=== PATIENT | male | born 1960 | race Hispanic/Latino ===

== ENCOUNTER → 2019-07-30 07:22 | Outpatient (CLI) | payer OTHER, SELFPAY ==
--- NOTE | ~2019-07-30 | US_ITS ---
US right upper quadrant INDICATION: Elevated liver enzymes PROCEDURE: Realtime right upper abdominal ultrasound. COMPARISON: No prior studies for comparison. FINDINGS: The pancreas is obscured by bowel gas. Liver echotexture is normal without focal mass or i ntrahepatic biliary dilatation. There is normal directional flow in the portal vein. The gallbladder is normal without stones, gallbladder wall thickening or pericholecystic fluid. Comm on bile duct measures 3 mm. No sonographic Garcia's sign. IMPRESSION: 1: Normal limited abdominal ultrasound. Reviewed, dictated and finalized at location A. OR GREETING CARD
== END ==
PROVIDERS: Visit Provider Internal Medicine
DX: R74.8 Abnormal levels of other serum enzymes (principal)
CPT/HCPCS: 76705

== ENCOUNTER → 2020-08-24 16:42 | Outpatient (CLI) | payer OTHER, SELFPAY ==
--- NOTE | ~2020-08-24 | XR_ITS ---
EXAMINATION: XR hip LT 2V w AP pelvis DATE: 08/24/2020 17:03 INDICATION: Left hip pain TECHNIQUE: Anteroposterior view of the pelvis and anteroposterior and frog-leg lateral views of the l eft hip were obtained. COMPARISON: None. FINDINGS: Alignment is normal. No fracture or suspected avascular necrosis. Mild bilateral hip osteoarthritis w ith mild nonuniform joint space narrowing and acetabular marginal osteophytes, small on the left and moderate on the right. Minimal bilateral sacroiliac osteoarthritis. Soft tissues are unremarkable. IMPRESSION: 1. Mild bilateral hip osteoarthritis. No acute osseous abnormality. Reviewed, dictated and finalized at location B.
--- NOTE | ~2020-08-24 | XR_ITS ---
EXAMINATION: XR lumbar spine 2-3V DATE: 08/24/2020 17:02 INDICATION: Left hip pain TECHNIQUE: Anteroposterior and lateral views of the lumbar spine, and cone-down lateral view of the l umbosacral junction were obtained. COMPARISON: None. FINDINGS: Alignment is normal. Vertebral body and disc heights are normal. Lumbar facet osteoarthritis, mild in the mid to upper lumbar spine and moderate in the lower lumbar spine. Sacrum and bilateral sacralize d joints are unremarkable. IMPRESSION: 1. Mild to moderate lumbar facet osteoarthritis. Reviewed, dictated and finalized at location B.
== END ==
PROVIDERS: PCP Internal Medicine; Visit Provider Internal Medicine
DX: M51.36 Other intervertebral disc degeneration, lumbar region (principal); M16.0 Bilateral primary osteoarthritis of hip
CPT/HCPCS: 72100; 73502

== ENCOUNTER 2024-06-16 01:23 | Day surgery (SDC) | payer BC, SELFPAY ==
[2024-05-25 14:36] VITALS: BMI 34.4
[2024-06-16 06:55] VITALS: BP 142/84; PULSE 82; RESP 16; TEMP 36.2; O2SAT 98; BMI 30.9
[2024-06-16] MEDS: LACTATED RINGERS 1,000 ML 150 ML IV CONT (07:18)
[2024-06-16 07:20] LABS: Glucose Point of Care 133 mg/dl (65-105)
--- NOTE | 2024-06-16 07:26 | WPDANESEPPF ---
Anes - Initial Pre Proc Eval Procedure: Operation Date: 06/16/24 08:00 Proposed Procedures p Screening Colonoscopy - Luís Navarro MD Date/Time: 06/16/24 07:26 Surgeon: Luís Navarro MD Pre Op Diagnosis: neoplasm screening Patient Data Age: 64 Gender: M Height: 1.7 m Weight: 89.5 kg Last Vital Signs Temp 36.2 C L 06/16/24 06:55 Pulse 82 06/16/24 06:55 Resp 16 06/16/24 06:55 BP 142/84 H 06/16/24 06:55 Pulse Ox 98 06/16/24 06:55 O2 Del Method Room Air 06/16/24 06:55 Allergies Allergy/AdvReac Type Severity Reaction Status Date / Time meloxicam AdvReac Rash Verified 06/16/24 07:03 Home Medications ?Medication ?Instructions ?Recorded ?Confirmed ?Type amlodipine 10 mg tablet 10 mg PO DAILY 05/25/24 06/16/24 History atorvastatin 40 mg tablet 40 mg PO DAILY 05/25/24 06/16/24 History metformin 500 mg tablet 1,000 mg PO BID 05/25/24 06/16/24 History Laboratory Tests 06/16/24 07:16 POC Capillary Glucose 133 H mg/dl (65-105) Patient hx anesthesia problems: none Family hx anesthesia problems: none Results Review: All pre-operative results and documents have been reviewed as part of the pre-operative evaluation. [facility] Past Medical History Medical History (Updated 06/16/24 @ 07:27 by Zane Mejia MD) HTN (hypertension) Diabetes Obesity Social History Social History Smoking status: Never smoker Substance use type: does not use Living arrangements: with family Spiritual care concerns: No Anes - Eval Final PreProcedure Day of Procedure 06/16/24 07:26 Patient weight: obese Heart: regular rate and rhythm Lungs: clear to auscultation Airway: Mallampati scale class II Neurological: alert and oriented Last oral intake: >/= 8 hours ASA classification: III Emergent: no Anesthetic plan: proceed Anesthesia type and monitoring: general GIVS and standard monitoring Results Review: All pre-operative results and documents have been reviewed as part of the pre-operative evaluation. Informed Consent: The patient's anesthetic plan and its attendant risks and benefits were discussed with the patient/family/POA. Questions were solicited and answers provided to the satisfaction of the patient/family/POA.
--- NOTE | 2024-06-16 07:56 | PM.IMHP ---
H&P: HPI History of Present Illness Date/Time: 06/16/24 07:56 Chief Complaint: History of colon polyps Narrative: The patient has a history of colonic polyps, the last colonoscopy was 5 years ago. there is no family history of colorectal cancer Review of Systems Review of Systems: All systems reviewed & are unremarkable except as noted in HPI and below PMFSH Past Medical History Medical History (Updated 06/16/24 @ 07:57 by Luís Navarro MD) HTN (hypertension) Diabetes Obesity Social History Social History Smoking status: Never smoker Substance use type: does not use Living arrangements: with family Spiritual care concerns: No Meds Home Medications and Allergies Home Medications ?Medication ?Instructions ?Recorded ?Confirmed ?Type amlodipine 10 mg tablet 10 mg PO DAILY 05/25/24 06/16/24 History atorvastatin 40 mg tablet 40 mg PO DAILY 05/25/24 06/16/24 History metformin 500 mg tablet 1,000 mg PO BID 05/25/24 06/16/24 History Allergies Allergy/AdvReac Type Severity Reaction Status Date / Time meloxicam AdvReac Rash Verified 06/16/24 07:03 Vital Signs Vital Signs - 24 hr 06/16/24 06:55 Temperature 97.2 F L Pulse Rate 82 Respiratory Rate 16 Blood Pressure 142/84 H Pulse Oximetry 98 Oxygen Delivery Room Air Exam Const: General: cooperative and healthy appearing Resp: Effort & Inspection: normal respiratory effort and able to speak in complete sentences Auscultation: clear to auscultation bilaterally Cardio: Rate: regular rate Rhythm: regular rhythm GI: Inspection: normal to inspection GI Palp: No No hepatosplenomegaly present Auscultation: normal bowel sounds Rectal Exam: deferred Skin: General skin exam: normal color Psych: Appearance: grossly normal Mental Status: mental status grossly normal Assessment and Plan Assessment and plan (1) History of colonic polyps: Code(s): Z86.0100 - Personal history of colon polyps, unspecified Status: Acute Assessment and Plan: The patient is deemed a good candidate for the procedure. Consent signed. Will proceed.
[2024-06-16 08:15] VITALS: BP 101/68; PULSE 62; RESP 16; O2SAT 97
[2024-06-16 08:25] VITALS: BP 110/71; PULSE 58; RESP 14; O2SAT 100
[2024-06-16 08:35] VITALS: BP 127/86; PULSE 65; RESP 15; O2SAT 100
== END 2024-06-16 08:44 | disposition home or self-care (01) ==
PROVIDERS: PCP Internal Medicine; Visit Provider Internal Medicine Gastroenterology
PROC: 0DJD8ZZ Inspection of Lower Intestinal Tract, Via Natural or Artificial Opening Endoscopic (ICD-10-PCS; CPT 45378; principal; 2024-06-16 08:00)
DX: Z12.11 Encounter for screening for malignant neoplasm of colon (principal); D12.3 Benign neoplasm of transverse colon; I10 Essential (primary) hypertension; E11.9 Type 2 diabetes mellitus without complications; E66.9 Obesity, unspecified; Z68.30 Body mass index [BMI] 30.0-30.9, adult; Z79.84 Long term (current) use of oral hypoglycemic drugs
CPT/HCPCS: 45385; 82948; 88305; J2003; J2704; J7120